=== PATIENT | male | born 1955 | race Caucasian/White ===

== ENCOUNTER 2025-03-05 14:20 | Inpatient (IN) | payer OTHER ==
[~2025-03-05] VITALS: Ht 182.9 cm; Wt 96.7 kg
[~2025-03-05 14:20] MED LIST: ATOR80 PO; Advil Pm Liqui1 EACH PO; Aspirin EC81 MG; B-122500 MCG SL; Bactrim Ds Tab1 EACH PO; DICLOFENAC SOD100 GM TP; IBUP800 PO; Lisinopril2.5 MG; NEBI5 PO; Vitamin D2000 UNIT PO
[2025-03-05 15:13] LABS: BASOPHILS ABSOLUTE AUTO 0.01 K/mm3 (0.00-0.23); BASOPHILS PERCENT AUTO 0 % (0-2); EOSINOPHILS ABSOLUTE AUTO 0.00 K/mm3 (0.00-0.68); EOSINOPHILS PERCENT AUTO 0 % (0-6); Hematocrit 41.8 % (37.0-53.0); Hemoglobin 14.6 g/dL (13.5-17.5); IMMATURE GRAN ABSOLUTE AUTO 0.03 K/mm3 (0.00-0.10); IMMATURE GRAN PERCENT AUTO 0 % (0-1); LYMPHOCYTES ABSOLUTE AUTO 0.72 K/mm3 (0.84-5.20); LYMPHOCYTES PERCENT AUTO 9 % (21-46); MONOCYTES ABSOLUTE AUTO 0.16 K/mm3 (0.16-1.47); MONOCYTES PERCENT AUTO 2 % (4-13); Mean Corpuscular HGB Conc 34.9 g/dL (31.5-36.5); Mean Corpuscular Volume 90 fL (80-100); NEUTROPHILS ABSOLUTE AUTO 7.58 K/mm3 (1.96-9.15); NEUTROPHILS PERCENT AUTO 89 % (41-73); NRBC ABSOLUTE 0.00 K/mm3 (0.00-0.02); NRBC Auto 0.0 /100 WBC (0.0-0.2); Platelet Count 217 K/mm3 (150-400); RDW Coefficient Variation 11.7 % (11.7-14.2); RDW Standard Deviation 37.9 fL (35.1-46.3)
[2025-03-05 15:28] LABS: Alanine Aminotransfer (ALT/SGP 40.0 U/L (12-78); Albumin, Blood 3.8 g/dL (3.4-5.0); Albumin/Globulin Ratio 1.1 (0.8-1.8); Anion Gap 9.0 mmol/L (3-11); Aspartate Aminotrans (AST/SGOT 26.0 U/L (12-37); Bilirubin, Total 0.5 mg/dL (0.1-1.0); Blood Urea Nitrogen 26.0 mg/dL (8-24); CO2, Blood 26.0 mmol/L (21-32); Calcium, Blood 8.7 mg/dL (8.5-10.1); Chloride, Blood 105.0 mmol/L (98-108); Creatinine, Blood 0.88 mg/dL (0.60-1.20); Globulin, Blood 3.4 g/dL (2.2-4.0); Glucose, Blood 331.0 mg/dL (70-99); Potassium, Blood 4.2 mmol/L (3.5-5.5); Sodium, Blood 136.0 mmol/L (136-145); Total Protein, Blood 7.2 g/dL (6.4-8.2)
[2025-03-05] MEDS ORDERED: MULTI-VITAMIN1 EAC2 PO (17:32)
[2025-03-05] MEDS ORDERED: DILT120 PO (17:32)
[2025-03-05] MEDS ORDERED: CEFUROXIME SOD1.5 GM PO (17:33)
[2025-03-05] MEDS ORDERED: PRED10 PO (17:34)
[2025-03-05 17:35] LABS: Anti-Xa UFH, PHA Monitoring <0.10 IU/mL; Prothrombin Time Results 10.5 Sec (9.7-11.5)
[2025-03-05] MEDS ORDERED: Dose Adjust by Pharmacy XX STA (17:47)
[2025-03-05] MEDS ORDERED: Heparin Sodium 5000 Units/ML 1ML MDV IV ONE (17:50)
[2025-03-05] MEDS ORDERED: Heparin Sodium,Porcine/0.5 NS 500 ML IV SCH (17:50)
[2025-03-05] MEDS ORDERED: Ondansetron HCl 2 MG / ML 2ML Vial IV PRN (17:55)
[2025-03-05] MEDS ORDERED: NS 1,000 ML IV SCH (17:55)
[2025-03-05] MEDS ORDERED: Labetalol HCL 5 MG/ML 4ML Injection (Single Dose) IV PRN (17:55)
[2025-03-05] MEDS ORDERED: Trimethoprim/Sulfamethoxazole DS Tab PO SCH (19:00)
[2025-03-05] MEDS ORDERED: OZEMPIC2 MG/0.75 SC (21:55)
--- NOTE | 2025-03-05 21:56 | NUR ---
ADMIT NOTE HANDOFF RECEIVED FROM [employer]. PT ARRIVED TO FLOOR VIA GURNEY. PT ORIENTED TO UNIT. HEPARING GTT INFUSING. STANDING WEIGHT TAKEN. TELEMETRY NOW IN PLACE: NSR @ 83 BPM. CALL BUTTON WITHIN REACH
[2025-03-05 23:50] VITALS: BP 143/88
[2025-03-06] VITALS (9 sets, daily range): BP systolic 132–149; BP diastolic 74–91
[2025-03-06 00:45] LABS: Hematocrit 36.9 % (37.0-53.0); Hemoglobin 12.8 g/dL (13.5-17.5); Mean Corpuscular HGB Conc 34.7 g/dL (31.5-36.5); Mean Corpuscular Volume 90 fL (80-100); NRBC ABSOLUTE 0.00 K/mm3 (0.00-0.02); NRBC Auto 0.0 /100 WBC (0.0-0.2); Platelet Count 190 K/mm3 (150-400); RDW Coefficient Variation 11.6 % (11.7-14.2); RDW Standard Deviation 38.4 fL (35.1-46.3)
[2025-03-06 01:11] LABS: Anion Gap 7.0 mmol/L (3-11); Blood Urea Nitrogen 26.0 mg/dL (8-24); CO2, Blood 27.0 mmol/L (21-32); Calcium, Blood 8.3 mg/dL (8.5-10.1); Chloride, Blood 108.0 mmol/L (98-108); Creatinine, Blood 0.77 mg/dL (0.60-1.20); Glucose, Blood 161.0 mg/dL (70-99); Potassium, Blood 3.5 mmol/L (3.5-5.5); Sodium, Blood 138.0 mmol/L (136-145)
--- NOTE | 2025-03-06 03:00 | NUR ---
PHARMACY CALLED PHARMACY NOTIFIED ME THAT THE RATE OF HEPARIN GTT WILL REMAIN UNCHANGED FOR NOW. PHARMACY IS MANAGING HEPARIN.
--- NOTE | 2025-03-06 04:12 | NUR ---
SHIFT SUMMARY ADMITTED FOR CHEST PAIN, ONSET 1 WEEK AGO. FULL CODE. PLAN IS FOR ANGIOGRAM AND ECHO TODAY. PT HAS BEEN NPO SINCE MIDNIGHT. Q6 CBG'S DUE TO NPO. TELEMETRY: NSR @ 83 BPM. HE IS ON RA, A&O X4, INDEPENDENT. HE DENIES CHEST PAIN THIS SHIFT. CARDIOLOGY CONSULT IS DR. MCKEON, HE SAW THE PT IN THE ER. HEPARIN GTT INFUSING, PHARMACY IS MANAGING.
[2025-03-06 07:42] LABS: Alanine Aminotransfer (ALT/SGP 33.0 U/L (12-78); Albumin, Blood 3.1 g/dL (3.4-5.0); Albumin/Globulin Ratio 1.0 (0.8-1.8); Anion Gap 7.0 mmol/L (3-11); Aspartate Aminotrans (AST/SGOT 19.0 U/L (12-37); Bilirubin, Total 0.7 mg/dL (0.1-1.0); Blood Urea Nitrogen 23.0 mg/dL (8-24); CO2, Blood 27.0 mmol/L (21-32); Calcium, Blood 8.4 mg/dL (8.5-10.1); Chloride, Blood 107.0 mmol/L (98-108); Creatinine, Blood 0.78 mg/dL (0.60-1.20); Globulin, Blood 3.0 g/dL (2.2-4.0); Glucose, Blood 124.0 mg/dL (70-99); Magnesium, Blood 1.8 mg/dL (1.6-2.4); Potassium, Blood 3.5 mmol/L (3.5-5.5); Sodium, Blood 137.0 mmol/L (136-145); Total Protein, Blood 6.1 g/dL (6.4-8.2)
[2025-03-06] MEDS ORDERED: Dose Adjust by Pharmacy XX STA (08:03)
[2025-03-06] MEDS ORDERED: Verapamil HCL 2.5 MG/ML 2ML Injection ONE (14:28)
[2025-03-06] MEDS ORDERED: Heparin Sodium 1000 Units/ML 10ML MDV ONE (14:28)
[2025-03-06] MEDS ORDERED: NS 2,000 ML IV ONE (14:29)
[2025-03-06] MEDS ORDERED: NS 250 ML IV ONE (14:29)
[2025-03-06] MEDS ORDERED: Nitroglycerin 2 MG/20 ML BTL ONE (14:29)
--- NOTE | 2025-03-06 14:38 | NUR ---
[facility] CAME TO PATIENT'S ROOM PCU 6 AND TOOK PATIENT VIA BED AND HEPARIN WAS STOPPED AT 1440 PHARMACY NOTIFIED. PATIENT'S ACCOMPANIED PATIENT; PATIENT ALERT, NO SIGNS OR SYMPTOMS OF DISTRESS.
[2025-03-06] MEDS ORDERED: FentaNYL Citrate 50 MCG/ML 2 ML Injection ONE (15:03)
[2025-03-06] MEDS ORDERED: Midazolam HCl 1MG / ML 2ML Vial ONE (15:03)
--- NOTE | 2025-03-06 16:53 | NUR ---
SHIFT SUMMARY: PATIENT HAD AN ANGIOGRAM AROUND 1400 TODAY AND RETURNED AT 1555. PATIENT ALERT AND NO SIGNS OR SYMPTOMS OF DISTRESS ON RETURN. TR BAND IN PLACE OF R RADIAL SITE. PULSE AND CIRCULATION PRESENT. PT REPORTS BASELINE NUMBNESS IN BILATERAL HANDS/FINGERS. TOLD IN REPORT 12CC IN TR BAND AND NO STENTS WERE PLACED. DR. MCKEON CAME TO BEDSIDE AND TOLD PATIENT OF RESULTS; PLAN IS FOR THE PATIENT TO TRANSFER TO [facility] WITH DR. ANH OLIVARES; [employer] NOTIFIED AND IS WORKING ON TRANSFER. HEPARIN AND PLAVIX STOPPED PER DR. MCKEON. PATIENT IN HIS ROOM, AT BEDSIDE, NO SIGNS OR SYMPTOMS OF DISTRESS, CALL LIGHT WITHIN REACH, PLAN OF CARE ONGOING.
--- NOTE | 2025-03-06 17:13 | NUR ---
2ML OF AIR DEFLATED FROM TR BAND AT 1711; SITE STILL WNL. REVIEWED WITH FRANCISCO JAVIER HAYWOOD.
--- NOTE | 2025-03-06 17:23 | NUR ---
2 ML OF AIR REMOVED FROM TR BAND AT 1721; SITE WNL
--- NOTE | 2025-03-06 17:35 | NUR ---
2 ML OF AIR REMOVED FROM TR BAND AT 1731; SITE WNL
--- NOTE | 2025-03-06 17:44 | NUR ---
2 MORE ML OF AIR REMOVED AT TR BAND BRINGING TOTAL VOLUME TO 4 ML; SLIGHT OOZING OF SITE FROM THIS REMOVAL; 2 ML OF AIR REINSTILLED.
--- NOTE | 2025-03-06 18:16 | NUR ---
2 ML OF AIR REMOVED FROM TR BAND; TOTAL VOLUME AT 4 ML. SITE WNL; NOT CURRENTLY OOZING.
--- NOTE | 2025-03-06 18:47 | NUR ---
2 ML OF AIR REMOVED FROM TR BAND; 2 ML REMAIN; SITE WNL.
[2025-03-06] MEDS ORDERED: Insulin Human Lispro 100 Units/ML 3ML Syringe SC SCH ×2 (21:00)
--- NOTE | 2025-03-06 22:23 | NUR ---
2 MLS OF AIR REMOVED AT RIGHT RADIAL SITE AT 2006. NO MORE AIR LEFT. SITE WNL
[2025-03-07 03:41] VITALS: BP 141/86
[2025-03-07 04:38] LABS: Hematocrit 40.8 % (37.0-53.0); Hemoglobin 14.0 g/dL (13.5-17.5); Platelet Count 192 K/mm3 (150-400)
[2025-03-07 07:30] VITALS: BP 145/84
--- NOTE | 2025-03-07 07:48 | NUR ---
PT ALERT AND ORIENTED. NO C/O CHEST PAIN OR PRESSURE. AMBULATING INDEPENDTLY IN ROOM. RIGHT RADIAL SITE WNL. ON ROOM AIR. VITALS WNL
[2025-03-07 08:46] LABS: CHOL/HDL RATIO 3.6; Cholesterol 154 mg/dL (50-200); HDL Cholesterol 43 mg/dL (>39); LDL/HDL RATIO 2.1; Low Density Lipoprotein Chol 89 mg/dL (0-110); Triglycerides 112 mg/dL (30-160); Very Low Density Lipoprot Chol 22 mg/dL (6-32)
[2025-03-07 11:25] VITALS: BP 136/85
--- NOTE | 2025-03-07 12:26 | NUR ---
MORNING SUMMARY THE PT IS A&OX4, IND IN THE ROOM, ABLE TO MAKE NEEDS KNOWN, AND IS AWAITING FOR A BED ASSIGNMENT AT [facility] FOR [place] FOR A CABG. CREDIT REVIEW MANAGER TISHA CALLED FOR AN UPDATE ON THE TRANSFER AND D/T LACK OF BEDS, THE PT WILL LIKELY TRANSFER 03/08. THE PT, PT'S , AND DAUGHTER ARE AT BEDSIDE AND UPDATED ON CARE. THE PT HAS BEEN SR 80'S AND BP STABLE. THE PT DENIES ANY ANGINA OR CHEST PRESSURE. HIS RIGHT RADIAL SITE IS HAS GAUZE AND TEGADERM C/D/I. CAP REFILL <3 SEC AND STRONG PULSES. NO BRUISING, REDNESS, OR TENDERNESS NOTED. HE GONZALEZ SBEEN ON RA W/ SP02 >93%. HE DENIES ANY SOB. PT IS CURRENTLY VISITING WITH FAMILY IN THE ROOM. SEE NOTES FOR ANY UPDATES.
[2025-03-07] MEDS ORDERED: Enoxaparin 40 MG/0.4 ML SYR SC SCH (13:00)
[2025-03-07 16:23] VITALS: BP 130/77
--- NOTE | 2025-03-07 18:01 | NUR ---
NO CHANGES FROM MORNING SUMMARY
[2025-03-07 20:22] VITALS: BP 127/68
[2025-03-07 23:42] VITALS: BP 141/85
[2025-03-08 03:29] VITALS: BP 133/77
[2025-03-08 03:51] LABS: Hematocrit 42.4 % (37.0-53.0); Hemoglobin 14.7 g/dL (13.5-17.5); Mean Corpuscular HGB Conc 34.7 g/dL (31.5-36.5); Mean Corpuscular Volume 90 fL (80-100); NRBC ABSOLUTE 0.00 K/mm3 (0.00-0.02); NRBC Auto 0.0 /100 WBC (0.0-0.2); Platelet Count 199 K/mm3 (150-400); RDW Coefficient Variation 11.4 % (11.7-14.2); RDW Standard Deviation 37.7 fL (35.1-46.3)
[2025-03-08 04:11] LABS: Anion Gap 7.0 mmol/L (3-11); Blood Urea Nitrogen 23.0 mg/dL (8-24); CO2, Blood 25.0 mmol/L (21-32); Calcium, Blood 8.4 mg/dL (8.5-10.1); Chloride, Blood 106.0 mmol/L (98-108); Creatinine, Blood 0.99 mg/dL (0.60-1.20); Glucose, Blood 135.0 mg/dL (70-99); Potassium, Blood 3.8 mmol/L (3.5-5.5); Sodium, Blood 134.0 mmol/L (136-145)
--- NOTE | 2025-03-08 07:15 | NUR ---
PT ALERT AND ORIENTED. VITALS WNL. PT AMBULATING INDEPENDENTLY IN THE ROOM. NO C/O CHEST PAIN OF PRESSURE. WAITING TO GO [facility] FOR TRANSFER FOR CABG. CALL MORALES WITHIN REACH.
[2025-03-08 08:24] VITALS: BP 134/76
--- NOTE | 2025-03-08 09:52 | NUR ---
am note this rn assumed care at 0700. vital signs stable. tele sinus rhythm 80s. patient is alert and oriented x4. neuro is intact. perrla. patient is able to make needs known and uses call light appropriately. patient denies pain, chest pain/pressure or shortness of breath. see shift assessment for further detials. rn cardiac got a call from [facility] and plan to hopefully transfer patient up this afternoon.
[2025-03-08 13:02] VITALS: BP 108/72
[2025-03-08 15:21] VITALS: BP 108/72
--- NOTE | 2025-03-08 16:17 | NUR ---
update-report given to yenni rn this rn gave report to yenni rn. patient is aware of transfer. patient is going to room 275 and [facility] is accepting doc. transport will be arriving in the next half hour and updated patient. patient updated celine.
[2025-03-08 16:25] VITALS: BP 137/84
[2025-03-08 16:27] VITALS: BP 108/72
--- NOTE | 2025-03-08 16:36 | NUR ---
transfer to facility this rn gave report to ems service whom is transfering patient to [facility]. patient left with all belongings and in no distress.
== END 2025-03-08 16:35 | disposition short-term general hospital (02) | DRG 282 ==
LOC: ER 14:20 → ERHOLD 17:51 → PCU 17:51
PROVIDERS: Emergency Medicine; Family Medicine; Internal Medicine; Nurse Practitioner Acute Care; ADMIT Internal Medicine
PROC: B2111ZZ Fluoroscopy of Multiple Coronary Arteries using Low Osmolar Contrast (ICD-10-PCS; principal; 2025-03-06)
DX: I21.4 Non-ST elevation (NSTEMI) myocardial infarction (principal); I25.10 Atherosclerotic heart disease of native coronary artery without angina pectoris; E11.9 Type 2 diabetes mellitus without complications; I10 Essential (primary) hypertension; J32.9 Chronic sinusitis, unspecified; Z79.84 Long term (current) use of oral hypoglycemic drugs; Z79.52 Long term (current) use of systemic steroids
CPT/HCPCS: 36415; 71046; 76937; 80048; 80053; 80061; 82947; 83690; 83735; 84484; 85014; 85018; 85025; 85027; 85049; 85520; 85610; 85730; 93005; 93010; 93306; 93454; 99152; 99153; 99285-25; A9270; C1769; C1887; C1894; J1644; J1650; J2250; J3010; J7030; J7050; Q9967